=== PATIENT | female | born 1980 | race Caucasian/White ===

== ENCOUNTER 2018-09-19 06:32 | Day surgery (SDC) | payer OTHER ==
[~2018-09-19] VITALS: Ht 157.5 cm; Wt 56.7 kg
[2018-09-19 07:25] LABS: BASOPHILS # (AUTO) 0.1 K/uL (0.00-0.22); BASOPHILS % (AUTO) 0.9 % (0.0-2.0); EOSINOPHILS % (AUTO) 0.6 % (0.0-4.0); HEMATOCRIT 41.5 % (36-48); HEMOGLOBIN 13.8 g/dL (12.0-16.0); LYMPHOCYTES # (AUTO) 1.8 K/uL (2.5-16.5); LYMPHOCYTES % (AUTO) 32.1 % (20.5-51.1); MEAN CORPUSCULAR HEMOGLOBIN 30 pg (27-31); MEAN CORPUSCULAR HGB CONC 33 g/dL (33-37); MONOCYTES # (AUTO) 0.4 K/uL (0.8-1.0); MONOCYTES % (AUTO) 6.7 % (1.7-9.3); NEUTROPHILS # (AUTO) 3.4 K/uL (1.8-7.7); NEUTROPHILS % (AUTO) 59.7 % (42.2-75.2); PLATELET COUNT (AUTO) 334 K/uL (140-450); RED BLOOD CELL COUNT(AUTO) 4.62 MIL/uL (4.20-5.40); WHITE BLOOD COUNT (AUTO) 5.7 K/uL (4.8-10.8)
[2018-09-19 07:37] LABS: APPEARANCE,URINE CLOUDY (CLEAR); BILIRUBIN,URINE NEGATIVE (NEGATIVE); BLOOD, URINE NEGATIVE (NEGATIVE); COLOR,URINE YELLOW (YELLOW); LEUKOCYTE ESTERASE ,URINE TRACE (NEGATIVE); NITRITE, URINE NEGATIVE (NEGATIVE); UGLUCOSE NEGATIVE (NEGATIVE)
[2018-09-19] MEDS ORDERED: CEFAZOLIN SODIUM 1 GM/D5W PM 50 ML IV SCH (07:40)
[2018-09-19 07:45] LABS: RBC,URINE 0-5 (RARE) /HPF (0-5)
[2018-09-19 07:46] LABS: URINE AMORPHOUS URATE 1+ /HPF (None Seen)
[2018-09-19] MEDS ORDERED: BUPIVACAINE-MPF/EPI 0.25% 30 ML VIAL INJ ONE (07:58)
[2018-09-19] MEDS ORDERED: ceFAZolin 1,000 MG VIAL ONE (07:58)
[2018-09-19] MEDS ORDERED: MIDAZOLAM 2 MG/2 ML VIAL ONE (07:59)
[2018-09-19] MEDS ORDERED: fentaNYL 0.05 MG/ML VIAL ONE (08:00)
[2018-09-19] MEDS ORDERED: MEPERIDINE 50 MG/ML SYR ONE (08:00)
[2018-09-19 08:13] LABS: ANION GAP 10.3 (8-16); CARBON DIOXIDE 29.3 mmol/L (21-32); CREATININE 0.8 mg/dL (0.6-1.3); POTASSIUM 3.6 mmol/L (3.5-5.1)
[2018-09-19 08:21] LABS: TOTAL BILIRUBIN 0.7 mg/dL (0.0-1.0)
[2018-09-19 08:31] LABS: PROTHROMBIN TIME 10.4 secs (10.8-13.4)
[2018-09-19] MEDS ORDERED: PROPOFOL 200 MG/20 ML VIAL IV ONE (08:40)
[2018-09-19] MEDS ORDERED: KETOROLAC 30 MG/ML VIAL ONE (08:40)
[2018-09-19] MEDS ORDERED: ONDANSETRON 4 MG/2 ML VIAL ONE (08:40)
[2018-09-19] MEDS ORDERED: SEVOFLURANE 250 ML BTL INH ONE (08:40)
[2018-09-19] MEDS ORDERED: ROCURONIUM 50 MG/5 ML VIAL IV ONE (08:40)
[2018-09-19] MEDS ORDERED: DEXAMETHASONE 4 MG/ML VIAL ONE (08:40)
[2018-09-19] MEDS ORDERED: GLYCOPYRROLATE 0.2 MG/ML VIAL ONE (08:40)
[2018-09-19] MEDS ORDERED: SUCCINYLCHOLINE CHLORIDE 200 MG/10 ML VIAL IVP ONE (08:40)
[2018-09-19] MEDS ORDERED: NEOSTIGMINE 1:1000 10 MG/10 ML VIAL ONE (08:40)
[2018-09-19] MEDS ORDERED: LACTATED RINGERS 1,000 ML IV SCH (09:22)
[2018-09-19] MEDS ORDERED: ONDANSETRON 4 MG/2 ML VIAL IVP PRN ×2 (09:25→10:40)
[2018-09-19] MEDS ORDERED: HYDROmorphone 1 MG/ML AMP IVP PRN ×2 (09:25→10:40)
[2018-09-19] MEDS ORDERED: MEPERIDINE 25 MG/ML SYR IVP PRN (09:25)
[2018-09-19] MEDS ORDERED: diphenhydrAMINE 50 MG/ML VIAL IVP PRN (09:25)
[2018-09-19] MEDS ORDERED: oxyCODONE/APAP 5/325 MG 1 TAB TAB PO PRN (10:15)
[2018-09-19] MEDS: HYDROmorphone PFS 2 MG/ML SYR ONE ×2 (10:37→10:50)
== END 2018-09-19 14:15 | disposition home or self-care (01) ==
LOC: MDS 06:32 → MMU 06:37 → MDS 14:15
PROVIDERS: ATTEND Surgery
DX: K42.9 Umbilical hernia without obstruction or gangrene (principal); Z98.890 Other specified postprocedural states; Z79.01 Long term (current) use of anticoagulants
CPT/HCPCS: 36415; 49652; 71045; 80053; 81001; 81025; 85025; 85610; 85730; 86886; 86900; 86901; 87086; C1781; J0330; J0690; J1100; J1170; J1885; J2175; J2250; J2405; J2704; J2710; J3010; J3490; J7120; Q0092